=== PATIENT | male | born 1960 | race Caucasian/White ===

== ENCOUNTER 2019-02-14 02:51 | Inpatient (IN) ==
[2019-02-14] MEDS ORDERED: PANTOPRAZOLE 40 MG VIAL IV ONE (03:12)
[2019-02-14] MEDS ORDERED: ONDANSETRON 4 MG/2 ML VIAL ONE (03:12)
[2019-02-14] MEDS ORDERED: SODIUM CHLORIDE 0.9% 1,000 ML IV STA (03:23)
[2019-02-14] MEDS ORDERED: PANTOPRAZOLE 40 MG VIAL IV STA (03:23)
[2019-02-14] MEDS ORDERED: ONDANSETRON 4 MG/2 ML VIAL IV STA (03:23)
[2019-02-14 03:42] LABS: Basophils # 0.1 10*3/uL (0.0-0.2); Basophils % 0.6 % (0.0-0.8); Eosinophils # 0.4 10*3/uL (0.0-0.87); Eosinophils % 4.4 % (0.00-10.9); Immature Granulocytes % 0.3 %; Immature Granulocytes Absolute 0.03 #; Lymphocytes # 1.1 10*3/uL (1.4-4.0); Lymphocytes % 11.7 % (21.2-54.2); Mean Corpuscular HGB Conc 33.4 GM/DL (32-36); Mean Corpuscular Volume 94.1 FL (87-102); Mean Platelet Volume 9.2 FL (9.6-12.0); Monocytes % 8.8 % (1.7-12.7); Neutrophils % 74.2 % (38.7-73.9); Platelet Count 334 T/CUMM (130-400); Red Blood Count 6.43 MC/CUMM (3.8-5.5); Red Cell Distribution Width 13.8 % (9.3-17.3); White Blood Count 9.3 T/CUMM (4-12)
[2019-02-14 03:48] LABS: Hematocrit 60.5 VOL% (42.0-52.0); Hemoglobin 20.2 GM/DL (14.0-18.0)
[2019-02-14 04:05] LABS: Alanine Aminotransferase 25 U/L (16-61); Albumin 4.8 G/DL (3.4-5.0); Alkaline Phosphatase 105 U/L (45-117); Amylase 33 U/L (25-115); Aspartate Amino Transferase 20 U/L (0-37); Blood Urea Nitrogen 24 MG/DL (7-18); Calcium 10.3 MG/DL (8.5-10.1); Glucose 186 MG/DL (74-106); Total Protein 8.4 G/DL (6.4-8.3)
[2019-02-14 04:08] LABS: Troponin I < 0.015 NG/ML (0.00-0.045)
[2019-02-14 05:03] LABS: Platelet Estimate Normal; Polychromasia Few
[2019-02-14] MEDS ORDERED: ACETAMINOPHEN 325 MG TABLET PO PRN (05:44)
[2019-02-14] MEDS ORDERED: ONDANSETRON 4 MG/2 ML VIAL IV PRN (05:44)
[2019-02-14] MEDS: PANTOPRAZOLE 40 MG TABLET PO SCH (08:11)
[2019-02-14] MEDS: LEVOTHYROXINE 150 MCG TABLET PO SCH (08:11)
[2019-02-14] MEDS: SODIUM CHLORIDE 0.9% 1,000 ML IV SCH ×2 (08:11→17:01)
[2019-02-14 09:39] LABS: Basophils % 0.4 % (0.0-0.8); Eosinophils # 0.4 10*3/uL (0.0-0.87); Eosinophils % 7.1 % (0.00-10.9); Hematocrit 56.4 VOL% (42.0-52.0); Hemoglobin 18.7 GM/DL (14.0-18.0); Immature Granulocytes % 0.4 %; Immature Granulocytes Absolute 0.02 #; Lymphocytes # 0.8 10*3/uL (1.4-4.0); Lymphocytes % 15.3 % (21.2-54.2); Mean Corpuscular HGB Conc 33.2 GM/DL (32-36); Mean Corpuscular Volume 94.5 FL (87-102); Mean Platelet Volume 9.1 FL (9.6-12.0); Monocytes % 15.8 % (1.7-12.7); Platelet Count 274 T/CUMM (130-400); Red Blood Count 5.97 MC/CUMM (3.8-5.5); Red Cell Distribution Width 13.4 % (9.3-17.3); White Blood Count 5.5 T/CUMM (4-12)
[2019-02-14 10:05] LABS: Band Neutrophils 15 % (0-10); Eosinophils 8 % (0-10); Lymphocytes 24 % (20-55); Platelet Estimate Adequate; Segmented Neutrophils 39 % (50-85); Total Cells Counted 100
[2019-02-14 10:06] LABS: Hypochromasia Slight
[2019-02-14] MEDS: ALUMINUM/MAGNES/SIMETH MAX STR 30 ML UDCUP PO PRN ×2 (13:02→21:12)
[2019-02-14] MEDS: CIPROFLOXACIN INJ 400 MG in PREMIX 1 EACH IV SCH (15:07)
[2019-02-14] MEDS: metroNIDAZOLE INJ 500 MG in PREMIX 1 EACH IV SCH ×2 (17:00→22:50)
[2019-02-15] MEDS: CIPROFLOXACIN INJ 400 MG in PREMIX 1 EACH IV SCH ×2 (01:57→13:25)
[2019-02-15] MEDS: SODIUM CHLORIDE 0.9% 1,000 ML IV SCH ×3 (02:48→20:36)
[2019-02-15 04:59] LABS: Calcium 8.9 MG/DL (8.5-10.1)
[2019-02-15 05:53] LABS: Apearance,Urine Slightly Hazy (Clear); Bacteria,Urine Occasional /HPF (Few); Bilirubin,Urine Negative (Negative); Blood, Urine Negative (Negative); Glucose,Urine (UA) Negative (Negative); Hyaline Casts,Urine 25 /LPF (0-3); Ketones,Urine Negative (Negative); Mucus,Urine Occasional /LPF (Occasional); Nitrite,Urine Negative (Negative); Protein,Urine Negative; RBC,Urine 2 /HPF (0-4); Squamous Epithelial Cell,Urine Occasional /HPF (0-10); Urine Color Yellow (Yellow); Urine Specific Gravity 1.018 (1.001-1.035); Urine Urobilinogen < 2.0 EU/DL (0.2-1.0); WBC,Urine 1 /HPF (0-6)
[2019-02-15] MEDS: metroNIDAZOLE INJ 500 MG in PREMIX 1 EACH IV SCH ×3 (06:20→22:20)
[2019-02-15] MEDS: LEVOTHYROXINE 150 MCG TABLET PO SCH (06:20)
[2019-02-15 07:33] LABS: Basophils % 0.4 % (0.0-0.8); Eosinophils # 0.5 10*3/uL (0.0-0.87); Hematocrit 49.2 VOL% (42.0-52.0); Hemoglobin 16.4 GM/DL (14.0-18.0); Immature Granulocytes % 0.3 %; Immature Granulocytes Absolute 0.02 #; Lymphocytes # 1.6 10*3/uL (1.4-4.0); Lymphocytes % 20.8 % (21.2-54.2); Mean Corpuscular HGB Conc 33.3 GM/DL (32-36); Mean Corpuscular Volume 94.8 FL (87-102); Mean Platelet Volume 9.9 FL (9.6-12.0); Neutrophils % 58.5 % (38.7-73.9); Platelet Count 277 T/CUMM (130-400); Red Blood Count 5.19 MC/CUMM (3.8-5.5); Red Cell Distribution Width 13.5 % (9.3-17.3); White Blood Count 7.6 T/CUMM (4-12)
[2019-02-15 07:55] LABS: Band Neutrophils 11 % (0-10); Eosinophils 12 % (0-10); Hypochromasia Slight; Lymphocytes 25 % (20-55); Ovalocytes Slight; Platelet Estimate Adequate; Segmented Neutrophils 45 % (50-85); Total Cells Counted 100
[2019-02-15 07:56] LABS: Atypical Lymphocytes Few
[2019-02-15] MEDS: PANTOPRAZOLE 40 MG TABLET PO SCH (08:04)
[2019-02-15] MEDS: ENOXAPARIN 30 MG/0.3 ML SYRINGE SUBCUT SCH (22:25)
[2019-02-16] MEDS: CIPROFLOXACIN INJ 400 MG in PREMIX 1 EACH IV SCH ×2 (02:25→14:44)
[2019-02-16 04:36] LABS: Basophils % 0.1 % (0.0-0.8); Eosinophils # 0.6 10*3/uL (0.0-0.87); Eosinophils % 8.4 % (0.00-10.9); Hematocrit 40.9 VOL% (42.0-52.0); Immature Granulocytes % 0.7 %; Immature Granulocytes Absolute 0.05 #; Lymphocytes # 1.5 10*3/uL (1.4-4.0); Lymphocytes % 20.8 % (21.2-54.2); Mean Corpuscular HGB Conc 34.2 GM/DL (32-36); Mean Corpuscular Volume 92.7 FL (87-102); Mean Platelet Volume 9.5 FL (9.6-12.0); Monocytes % 16.3 % (1.7-12.7); Neutrophils % 53.7 % (38.7-73.9); Platelet Count 215 T/CUMM (130-400); Red Blood Count 4.41 MC/CUMM (3.8-5.5); Red Cell Distribution Width 13.5 % (9.3-17.3); White Blood Count 7.2 T/CUMM (4-12)
[2019-02-16 04:59] LABS: Calcium 8.3 MG/DL (8.5-10.1); Osmolality,Calculated 279.7 MOS/KG (273-304)
[2019-02-16 05:31] LABS: Band Neutrophils 7 % (0-10); Eosinophils 15 % (0-10); Lymphocytes 18 % (20-55); Segmented Neutrophils 44 % (50-85); Total Cells Counted 100
[2019-02-16 05:32] LABS: Anisocytosis 1+; Platelet Estimate Adequate
[2019-02-16] MEDS: SODIUM CHLORIDE 0.9% 1,000 ML IV SCH ×3 (05:48→11:36)
[2019-02-16] MEDS: metroNIDAZOLE INJ 500 MG in PREMIX 1 EACH IV SCH ×3 (06:33→21:59)
[2019-02-16] MEDS: LEVOTHYROXINE 150 MCG TABLET PO SCH (06:34)
[2019-02-16] MEDS: PANTOPRAZOLE 40 MG TABLET PO SCH (09:06)
[2019-02-16] MEDS ORDERED: POTASSIUM CHLORIDE INJ 20 MEQ in SODIUM CHLORIDE 0.9% 1,000 ML IV SCH (10:13)
[2019-02-16] MEDS: SODIUM CHLOR 0.9% KCL 20 MEQ 20 MEQ/1,000 ML BAG IV SCH ×2 (11:36→21:15)
[2019-02-16] MEDS: ENOXAPARIN 30 MG/0.3 ML SYRINGE SUBCUT SCH (21:14)
[2019-02-17] MEDS: CIPROFLOXACIN INJ 400 MG in PREMIX 1 EACH IV SCH ×2 (01:00→15:35)
[2019-02-17] MEDS: ALUMINUM/MAGNES/SIMETH MAX STR 30 ML UDCUP PO PRN (02:12)
[2019-02-17 05:07] LABS: Basophils % 0.4 % (0.0-0.8); Eosinophils # 0.6 10*3/uL (0.0-0.87); Eosinophils % 7.2 % (0.00-10.9); Hematocrit 39.7 VOL% (42.0-52.0); Hemoglobin 13.4 GM/DL (14.0-18.0); Immature Granulocytes % 0.8 %; Immature Granulocytes Absolute 0.06 #; Lymphocytes # 1.7 10*3/uL (1.4-4.0); Lymphocytes % 21.3 % (21.2-54.2); Mean Corpuscular HGB Conc 33.8 GM/DL (32-36); Mean Corpuscular Volume 93.6 FL (87-102); Mean Platelet Volume 9.5 FL (9.6-12.0); Monocytes % 14.2 % (1.7-12.7); Neutrophils % 56.1 % (38.7-73.9); Platelet Count 207 T/CUMM (130-400); Red Blood Count 4.24 MC/CUMM (3.8-5.5); Red Cell Distribution Width 13.9 % (9.3-17.3); White Blood Count 7.9 T/CUMM (4-12)
[2019-02-17 05:20] LABS: Calcium 8.3 MG/DL (8.5-10.1); Osmolality,Calculated 281.1 MOS/KG (273-304)
[2019-02-17] MEDS: LEVOTHYROXINE 150 MCG TABLET PO SCH (06:04)
[2019-02-17] MEDS: metroNIDAZOLE INJ 500 MG in PREMIX 1 EACH IV SCH ×3 (06:04→23:15)
[2019-02-17] MEDS: PANTOPRAZOLE 40 MG TABLET PO SCH (11:06)
[2019-02-17] MEDS: SODIUM CHLOR 0.9% KCL 20 MEQ 20 MEQ/1,000 ML BAG IV SCH ×3 (11:07→23:17)
[2019-02-17] MEDS: ENOXAPARIN 30 MG/0.3 ML SYRINGE SUBCUT SCH (21:49)
[2019-02-18] MEDS: CIPROFLOXACIN INJ 400 MG in PREMIX 1 EACH IV SCH ×2 (01:59→15:12)
[2019-02-18 04:57] LABS: Basophils # 0.1 10*3/uL (0.0-0.2); Basophils % 0.5 % (0.0-0.8); Eosinophils # 0.7 10*3/uL (0.0-0.87); Eosinophils % 7.2 % (0.00-10.9); Hematocrit 37.3 VOL% (42.0-52.0); Hemoglobin 12.8 GM/DL (14.0-18.0); Immature Granulocytes % 1.9 %; Immature Granulocytes Absolute 0.19 #; Lymphocytes # 2.5 10*3/uL (1.4-4.0); Lymphocytes % 24.2 % (21.2-54.2); Mean Corpuscular HGB Conc 34.3 GM/DL (32-36); Mean Corpuscular Volume 91.4 FL (87-102); Mean Platelet Volume 9.5 FL (9.6-12.0); Monocytes % 10.3 % (1.7-12.7); Neutrophils % 55.9 % (38.7-73.9); Platelet Count 184 T/CUMM (130-400); Red Blood Count 4.08 MC/CUMM (3.8-5.5); Red Cell Distribution Width 13.7 % (9.3-17.3); White Blood Count 10.2 T/CUMM (4-12)
[2019-02-18 05:16] LABS: Osmolality,Calculated 280.1 MOS/KG (273-304)
[2019-02-18] MEDS: LEVOTHYROXINE 150 MCG TABLET PO SCH (06:20)
[2019-02-18] MEDS: metroNIDAZOLE INJ 500 MG in PREMIX 1 EACH IV SCH ×2 (06:20→15:12)
[2019-02-18] MEDS ORDERED: POTASSIUM CHLORIDE 20 MEQ PACK PO ONE (08:58)
[2019-02-18] MEDS: PANTOPRAZOLE 40 MG TABLET PO SCH (09:13)
[2019-02-18] MEDS: POTASSIUM CHLORIDE RIDER 10 MEQ in PREMIX 1 EACH IV SCH ×2 (09:13→10:41)
[2019-02-18] MEDS: SODIUM CHLOR 0.9% KCL 20 MEQ 20 MEQ/1,000 ML BAG IV SCH (10:16)
[2019-02-18 11:28] VITALS: BP 122/61
== END 2019-02-18 15:00 | disposition home or self-care (01) | DRG 872 ==
LOC: N.EDINP 02:51 → N.ED 02:51 → N.5E 06:56
PROVIDERS: ADMIT Internal Medicine; ATTEND Internal Medicine